=== PATIENT | female | born 1950 ===

== ENCOUNTER 2017-02-23 14:19 | Inpatient (IN) | payer MEDICARE, OTHER ==
--- NOTE | 2017-02-23 15:26 | ED PDOC ---
HPI: General Adult Time Seen by Provider: 02/23/17 14:43 Chief Complaint (Nursing): Upper Extremity Problem/Injury Chief Complaint (Provider): Abdominal Pain/Left Arm Numbness History Per: Patient History/Exam Limitations: no limitations Onset/Duration Of Symptoms: Hrs (x1) Additional Complaint(s): Nayely Walker is a 66 year old female with a history of diabetes, hypertension , CAD, and high cholesterol that is accompanied by her son and presents to the ED with a chief complaint of epigastric pain and left arm numbness that began one hours prior to arrival. Patient reports that she was folding clothes at home when her epigastric pain began, shortly followed by numbness radiating down her left arm. She denies any shortness of breath. Of Note: Patient had CABG x5 years ago. Past Medical History Reviewed: Historical Data, Nursing Documentation, Vital Signs Vital Signs: Last Vital Signs Temp 98.0 F 02/23/17 14:31 Pulse 74 02/23/17 14:31 Resp 16 02/23/17 14:31 BP 169/93 H 02/23/17 14:31 Pulse Ox 99 02/23/17 15:29 - Medical History PMH: CAD, Cardia Arrhythmia, HTN, Hyperlipidemia Denies: Diabetes - Surgical History Surgical History: CABG - Family History Family History: States: Unknown Family Hx - Home Medications Home Medications: Ambulatory Orders Medication Instructions Recorded Famotidine [Pepcid] 20 mg PO DAILY #7 tab 01/17/15 Losartan/Hydrochlorothiazide 12.5 - 100 mg PO DAILY 01/17/15 [Hyzaar 25 mg-100 mg] Meclizine Hydrochloride [Meclizine 12.5 mg PO Q8 PRN 01/17/15 HCl] Metoprolol Tartrate [Lopressor] 50 mg PO DAILY 01/17/15 NIFEdipine ER [Procardia XL] 30 mg PO DAILY 01/17/15 Simvastatin [Zocor] 20 mg PO HS 01/17/15 - Allergies Allergies/Adverse Reactions: Allergies Allergy/AdvReac Type Severity Reaction Status Date / Time No Known Allergies Allergy Unverified 06/17/13 12:11 Review of Systems Gastrointestinal: Positive for: Abdominal Pain (epigastric) Neurological: Positive for: Numbness (left arm) Physical Exam - Reviewed Nursing Documentation Reviewed: Yes Vital Signs Reviewed: Yes - Physical Exam Appears: Positive for: Non-toxic, No Acute Distress Head Exam: Positive for: ATRAUMATIC, NORMOCEPHALIC Skin: Positive for: Normal Color, Warm Eye Exam: Positive for: Normal appearance, EOMI, PERRL Cardiovascular/Chest: Positive for: Regular Rate, Rhythm. Negative for: Murmur Respiratory: Positive for: Normal Breath Sounds. Negative for: Wheezing Gastrointestinal/Abdominal: Positive for: Normal Exam, Soft. Negative for: Tenderness Back: Positive for: Normal Inspection. Negative for: L CVA Tenderness, R CVA Tenderness Extremity: Positive for: Normal ROM. Negative for: Pedal Edema, Swelling Neurologic/Psych: Positive for: Alert, diversified crops i farmworker II-XII, Oriented. Negative for: Motor/Sensory Deficits - Laboratory Results Result Diagrams: 02/23/17 15:24 02/23/17 15:24 - ECG Interpretation Of ECG: NSR @ 75, LVH. O2 Sat by Pulse Oximetry: 99 (RA) Pulse Ox Interpretation: Normal - Radiology X-Ray: Interpreted by Vt X-Ray Interpretation: No Acute Disease Medical Decision Making Medical Decision Making: Impression: Chest Pain vs. ACS Plan: * Chest X-Ray * EKG * CMP * CBC * PTT * PT * Troponin I * Accucheck * Urinalysis * Urine dip * Reevaluation Scribe Attestation: Documented by Elle Devine, acting as a scribe for Eva Zhao MD. Provider Scribe Attestation: All medical record entries made by the Scribe were at my direction and personally dictated by me. I have reviewed the chart and agree that the record accurately reflects my personal performance of the history, physical exam, medical decision making, and the department course for this patient. I have also personally directed, reviewed, and agree with the discharge instructions and disposition. Disposition - Clinical Impression Clinical Impression: Chest pain - Patient ED Disposition Is Patient to be Admitted: Yes - Disposition Disposition Time: 17:01 Condition: STABLE Forms: [facility] ([place]) - Pt Status Changed To: Hospital Disposition Of: Observation - POA Present On Arrival: None
[2017-02-23 15:29] LABS: BASO % 0.4 % (0.0-2.0); EOS # 0.1 K/uL (0.0-0.7); EOS % 1.5 % (0.0-4.0); HEMATOCRIT 41.1 % (34.0-47.0); LYMPH # 2.2 K/uL (1.0-4.3); LYMPH % 24.8 % (20.0-40.0); MEAN CELL VOLUME 87.1 fl (81.0-99.0); MEAN CORPUSCULAR HEMOGLOBIN 28.4 pg (27.0-31.0); MEAN CORPUSCULAR HGB CONC 32.6 g/dL (33.0-37.0); MEAN PLATELET VOLUME 10.5 fl (7.2-11.7); MONO # 0.8 K/uL (0.0-0.8); MONO % 9.3 % (0.0-10.0); NEUT # 5.6 K/uL (1.8-7.0); NRBC % 0.1 % (0.0-0.0); RED CELL DISTRIBUTION WIDTH 15.5 % (11.5-14.5); WHITE BLOOD COUNT 8.7 K/uL (4.8-10.8)
[2017-02-23 15:36] LABS: RBC URINE < 1 /hpf (0-3); URINE BACTERIA RARE (<OCC); URINE BILIRUBIN NEGATIVE (NEGATIVE); URINE BLOOD NEGATIVE (NEGATIVE); URINE COLOR COLORLESS (YELLOW); URINE GLUCOSE (UA) NEG (Normal); URINE KETONE NEGATIVE (NEGATIVE); URINE LEUKOCYTE ESTERASE NEG Leu/uL (Negative); URINE PROTEIN NEGATIVE (NEGATIVE); URINE UROBILINOGEN 0.2-1.0 mg/dL (0.2-1.0); WBC URINE < 1 /hpf (0-5)
[2017-02-23 15:43] LABS: ALKALINE PHOSPHATASE 94 U/L (38-126); ALT/SGPT 36 U/L (9-52); AST/SGOT 30 U/L (14-36); BILIRUBIN,TOTAL 0.2 mg/dl (0.2-1.3); BLOOD UREA NITROGEN 12 mg/dl (7-17); CALCIUM 10.8 mg/dL (8.4-10.2); CARBON DIOXIDE 29 mmol/L (22-30); CHLORIDE 107 mmol/L (98-107); GFR AFRICAN-AMERICAN > 60; GLUCOSE,RANDOM 102 mg/dL (65-105); POTASSIUM 4.2 MMOL/L (3.6-5.0); SODIUM 147 mmol/l (132-148); TOTAL PROTEIN 8.3 G/DL (6.3-8.2)
[2017-02-23 15:52] LABS: PARTIAL THROMBOPLASTIN TIME 29.5 Seconds (25.6-37.1)
--- NOTE | 2017-02-23 18:24 | US ---
EXAM: US Abdomen Limited, Right Upper Quadrant EXAM DATE/TIME: 02/23/2017 5:14 PM CLINICAL HISTORY: 66 years old, female; Pain; Abdominal pain; Epigastric; Additional info: Epigastric pain TECHNIQUE: Real-time ultrasound of the right upper quadrant with image documentation. COMPARISON: There are no prior studies for comparison. FINDINGS: Liver: Liver is echogenic. Hepatic texture is coarse Liver is incompletely imaged due to body habitus. There is hepatopedal flow in the main portal vein. Gallbladder: Gallbladder is distended with no stones, sludge or wall thickening. Common bile duct: Common bile duct measures 8.3 mm in diameter. Pancreas: Pancreas is incompletely visualized due to bowel gas and body habitus. Visualized portion is echogenic. Right kidney: Right kidney is unremarkable. IMPRESSION: Fatty liver; limited evaluation of midline structures due to body habitus and bowel gas; no gallstones or ductal dilatation Patient was not tender over the gallbladder
[2017-02-24 05:12] LABS: HEMATOCRIT 41.8 % (34.0-47.0); MEAN CELL VOLUME 88.8 fl (81.0-99.0); MEAN CORPUSCULAR HEMOGLOBIN 28.4 pg (27.0-31.0); RED CELL DISTRIBUTION WIDTH 15.3 % (11.5-14.5); WHITE BLOOD COUNT 6.7 K/uL (4.8-10.8)
[2017-02-24 05:45] LABS: BLOOD UREA NITROGEN 9 mg/dl (7-17); CALCIUM 10.2 mg/dL (8.4-10.2); CARBON DIOXIDE 29 mmol/L (22-30); CHLORIDE 106 mmol/L (98-107); CHOLESTEROL 196 mg/dL (0-199); GFR AFRICAN-AMERICAN > 60; GLUCOSE,RANDOM 96 mg/dL (65-105); POTASSIUM 4.2 MMOL/L (3.6-5.0); SODIUM 143 mmol/l (132-148)
--- NOTE | 2017-02-24 08:09 | CARD ---
APPROVED REPORT EKG Measurement Heart [id number] <Conclusion> Normal sinus rhythm Moderate voltage criteria for LVH, may be normal variant Inferior infarct, age undetermined Abnormal ECG
--- NOTE | 2017-02-24 10:14 | RAD ---
HISTORY: L arm numbness COMPARISON: 07/28/2010. FINDINGS: LUNGS: No active pulmonary disease. PLEURA: No significant pleural effusion identified, no pneumothorax apparent. CARDIOVASCULAR: Cardiomegaly. No evidence of acute, significant cardiovascular disease. Incidental Finding(s): Postoperative changes related to sternotomy. OSSEOUS STRUCTURES: No significant abnormalities. VISUALIZED UPPER ABDOMEN: Normal. OTHER FINDINGS: None. IMPRESSION: No active disease. No significant interval change compared to the prior examination(s).
[2017-02-24] MEDS: NIFEdipine 30 mg ER Tab PO SCH (10:15)
[2017-02-24] MEDS: Enoxaparin 40 mg Syringe SC SCH (10:16)
--- NOTE | 2017-02-24 19:39 | HP ---
CHIEF COMPLAINT: Abdominal pain and left arm numbness. HISTORY OF PRESENT ILLNESS: This is a 66-year-old female, known case of hypertension, diabetes, coronary artery disease, elevated cholesterol, and obesity who was having abdominal discomfort associated with left upper extremity numbness. The patient was brought to the emergency room and was admitted for further management. REVIEW OF SYSTEMS: Positive for epigastric discomfort and left arm numbness. Review of systems otherwise is negative for headache, dizziness, syncope, loss of consciousness, nausea, vomiting, diarrhea, constipation, any new joint or extremity pain. Review of systems of all other organ system is unremarkable. PAST MEDICAL HISTORY: Significant for hypertension, elevated cholesterol, cardiac arrhythmia, coronary artery disease, obesity. PAST SURGICAL HISTORY: Remarkable for coronary artery bypass graft. PERSONAL HISTORY: Patient is currently nonsmoker, nondrinker, no substance abuse. MEDICATIONS: Patient is on multiple medications, which is as per reconciliation sheet, which was reviewed and ordered. ALLERGIES: THE PATIENT IS NOT ALLERGIC TO ANY MEDICATION. FAMILY HISTORY: Noncontributory. PHYSICAL EXAMINATION: GENERAL: Well-built, well-nourished, morbidly obese, 66-year-old female, in no acute distress. VITAL SIGNS: Temperature 98.7, pulse 69, respirations 17, blood pressure 166/94, saturation 98%. HEENT: Pupils are reacting to light. No JVD. No thyromegaly. No lymphadenopathy. No nystagmus. Normocephalic, atraumatic skull. HEART: S1 and S2 normal, regular. No significant murmur, gallop, or rub is heard. LUNGS: Shows good bilateral air exchange. No rales or rhonchi. ABDOMEN: Soft, nontender. No organomegaly. No fluid. Bowel sounds are present. EXTERNAL GENITALIA AND RECTAL: Deferred. EXTREMITIES: No edema. No calf swelling. No tenderness. No acute ischemia. CENTRAL NERVOUS SYSTEM: Essentially unchanged and there is no sign of any acute gross focal motor or sensory neurological deficits. DIAGNOSTIC DATA: Available diagnostic data reviewed. Telemetry monitoring does not reveal significant arrhythmias. WBC 6.7, hemoglobin 13.4, hematocrit 41.8, platelet 172. Sodium 143, potassium 4.2, chloride 106, bicarb 29, BUN 9, creatinine 0.8. Accu-Cheks are acceptable. Troponin, two sets are negative. Cholesterol is 196, triglycerides 150, LDL is 126, vitamin B12 level is 300. TSH level is 3.3. EKG does not reveal any acute ST-T changes. Telemetry monitoring does not reveal significant arrhythmias. Chest x-ray is clear. Abdominal ultrasound shows fatty liver. ADMITTING IMPRESSION: Epigastric pain, rule out coronary syndrome of peptic origin, coronary artery disease, hypertension, elevated cholesterol, morbid obesity, body mass index of 41. PLAN: As ordered. Case and plan discussed with patient. Tyler Foster MD
[2017-02-24 20:17] VITALS: RESP 18
--- NOTE | 2017-02-25 08:29 | CP.PCM.PN ---
Subjective - Date & Time of Evaluation Date of Evaluation: 02/25/17 Time of Evaluation: 08:26 - Subjective Subjective: Patient seen and examined with Dr. Foster. Patient sitting upright in chair, comfortably. She feels well, no complaints. ACS workup has been negative. Awaiting cardiology evaluation. Had echo done today: Normal LVEF, trace aortic insufficiency, aortic sclerosis Objective - Vital Signs/Intake and Output Vital Signs (last 24 hours): Temp Pulse Resp BP Pulse Ox 97.8 F 68 18 135/81 98 02/25/17 08:00 02/25/17 08:00 02/25/17 08:00 02/25/17 08:00 02/25/17 08:00 - Medications Medications: Current Medications Acetaminophen (Tylenol 325mg Tab) 650 mg PO Q6 PRN PRN Reason: Pain, Mild (1-3) Last Admin: 02/24/17 21:50 Dose: 650 mg Atorvastatin Calcium (Lipitor) 20 mg PO HS [facility] Last Admin: 02/24/17 21:47 Dose: 20 mg Enoxaparin Sodium (Lovenox) 40 mg SC DAILY [facility] PRN Reason: Protocol Last Admin: 02/24/17 10:16 Dose: 40 mg Lisinopril (Zestril) 2.5 mg PO DAILY [facility] Last Admin: 02/24/17 10:16 Dose: 2.5 mg Metoprolol Tartrate (Lopressor) 50 mg PO Q12 [facility] Last Admin: 02/24/17 21:47 Dose: 50 mg Nifedipine (Procardia Xl) 30 mg PO DAILY [facility] Last Admin: 02/24/17 10:15 Dose: 30 mg Sitagliptin Phosphate (Januvia) 100 mg PO DAILY [facility] Last Admin: 02/24/17 10:15 Dose: 100 mg - Labs Labs: 02/24/17 04:20 02/24/17 04:20 PT 13.1 Seconds (9.8-13.1) 02/23/17 15:24 INR 1.2 (0.9-1.2) 02/23/17 15:24 APTT 29.5 Seconds (25.6-37.1) 02/23/17 15:24 - Constitutional Appears: Well, No Acute Distress - Head Exam Head Exam: ATRAUMATIC, NORMAL INSPECTION, NORMOCEPHALIC - Eye Exam Eye Exam: EOMI, Normal appearance, PERRL - Respiratory Exam Respiratory Exam: Clear to Ausculation Bilateral, NORMAL BREATHING PATTERN. absent: Decreased Breath Sounds - Cardiovascular Exam Cardiovascular Exam: REGULAR RHYTHM, +S1, +S2 - GI/Abdominal Exam GI & Abdominal Exam: Soft, Normal Bowel Sounds. absent: Distended, Guarding, Tenderness - Rectal Exam Rectal Exam: Deferred - Neurological Exam Neurological Exam: Alert, Awake, CN II-XII Intact, Oriented x3 - Psychiatric Exam Psychiatric exam: Normal Affect, Normal Mood - Skin Skin Exam: Dry, Intact, Normal Color, Warm Assessment and Plan - Assessment and Plan (Free Text) Assessment: 66 year old female w. PMH of HTN, CAD, DM, HLD, Morbid obesity, admitted with abdominal pain and left arm numbness, rule out ACS. HTN and DM have been well controlled. Lipid panel is WNL. Troponins have been negative. #Abdominal pain - resolved #HTN #CAD #Noninsulin dependent type 2 DM #HLD #DVT prophylaxis -home medications for htn, hld, dm resumed -awaiting cardiology evaluation -lovenox for dvt prophylaxis -echo done, WNL Patient seen and examined with attending.
[2017-02-25] MEDS: NIFEdipine 30 mg ER Tab PO SCH (08:56)
[2017-02-25] MEDS: Enoxaparin 40 mg Syringe SC SCH (08:58)
--- NOTE | 2017-02-25 11:54 | CARD ---
APPROVED REPORT EXAM: Two-dimensional and M-mode echocardiogram with Doppler and color Doppler. Other Information Quality : AverageRhythm : NSR Technically limited study due to body habitus.CABG. INDICATION Chest Pain Surgery/Intervention CABD DIMENSIONS IVSd1.45 (0.7-1.1cm)LVDd3.30 (3.9-5.9cm) LVOT Diameter2.20 (1.8-2.4cm)PWd1.32 (0.7-1.1cm) IVSs1.70 (0.8-1.2cm)LVDs2.72 (2.5-4.0cm) FS (%) 17.5 %PWs1.68 (0.8-1.2cm) M-Mode DIMENSIONS Left Atrium (MM)4.03 (2.5-4.0cm)IVSd1.09 (0.7-1.1cm) Aortic Root2.56 (2.2-3.7cm)LVDd4.41 (4.0-5.6cm) Aortic Cusp Exc.1.47 (1.5-2.0cm)PWd1.00 (0.7-1.1cm) IVSs1.59 cmFS (%) 27 % LVDs3.21 (2.0-3.8cm)PWs1.38 cm Mitral Valve MV E Hqdmdmud56.6cm/sMV DECEL [id number] A Zqdgirfl35.8cm/s MV GGN34rjS/A ratio0.9MVA (PHT)3.45cm2 TDI E/Lateral E'0.0E/Medial E'0.0 Pulmonary Valve PV Peak Qikobfdf50.3cm/s Tricuspid Valve TR Peak [id number]/sRAP [id number] Peak Gr.23mmHg [id number] LEFT VENTRICLE The left ventricle is normal size. There is normal left ventricular wall thickness. Left ventricle systolic function is normal. The Ejection Fraction is 60-65%. There is normal LV segmental wall motion. Transmitral Doppler flow pattern is Grade I-abnormal relaxation pattern. RIGHT VENTRICLE The right ventricle is normal size. There is normal right ventricular wall thickness. The right ventricular systolic function is normal. ATRIA The left atrium size is normal. The right atrium size is normal. AORTIC VALVE The aortic valve is mildly to moderately sclerotic. There is trace aortic regurgitation. There is no aortic valvular stenosis. MITRAL VALVE The mitral valve is normal in structure. There is no evidence of mitral valve prolapse. There is no mitral valve stenosis. There is no mitral valve regurgitation noted. TRICUSPID VALVE The tricuspid valve is normal in structure. There is mild tricuspid regurgitation. Right ventricular systolic pressure is estimated at 33 mmHg. There is mild pulmonary hypertension. PULMONIC VALVE The pulmonary valve is normal in structure. There is no pulmonic valvular regurgitation. GREAT VESSELS The aortic root is normal in size. The IVC is normal in size and collapses >50% with inspiration. PERICARDIAL EFFUSION The pericardium appears normal. <Conclusion> The left ventricle is normal size. There is normal left ventricular wall thickness. There is normal LV segmental wall motion. Left ventricle systolic function is normal. The Ejection Fraction is 60-65%. Transmitral Doppler flow pattern is Grade I-abnormal relaxation pattern. The aortic valve is mildly to moderately sclerotic. There is trace aortic regurgitation.
[2017-02-25 12:13] VITALS: BP 132/88; PULSE 60; TEMP 98.7; O2SAT 97
== END 2017-02-25 15:30 | disposition home or self-care (01) | DRG 392 ==
LOC: H.ER 14:19 → H.ERHOLD 17:38 → H.TEL 21:39 → OBSVTOIN 02-24 16:00
PROVIDERS: ADMIT Internal Medicine; ATTEND Internal Medicine
DX: R10.13 Epigastric pain (principal); Z68.41 Body mass index [BMI] 40.0-44.9, adult; I10 Essential (primary) hypertension; I25.10 Atherosclerotic heart disease of native coronary artery without angina pectoris; E11.9 Type 2 diabetes mellitus without complications; E66.01 Morbid (severe) obesity due to excess calories; E78.00 Pure hypercholesterolemia, unspecified; E78.5 Hyperlipidemia, unspecified; Z79.84 Long term (current) use of oral hypoglycemic drugs; Z79.899 Other long term (current) drug therapy; Z95.1 Presence of aortocoronary bypass graft; I49.9 Cardiac arrhythmia, unspecified; R07.9 Chest pain, unspecified